=== PATIENT | male | born 1990 | race Caucasian/White ===

== ENCOUNTER 2018-03-01 19:30 | Emergency (ER) | payer MEDICAID, SELFPAY ==
[2018-03-01 19:32] VITALS: BP 132/73; PULSE 83; RESP 20; TEMP 36.8; O2SAT 94; BMI 31.9
--- NOTE | 2018-03-01 20:13 | ED.VISSUMM ---
- ER Visit Summary Date of Service: 03/01/18 Chief Complaint: Cough, congestion History of Present Illness: The patient is a 27 M who reports a 2-3 day history of generalized body aches and subjective fever with chills. He reports cough with yellow sputum. He is also complaining of runny nose and head congestion. He states he has not eaten much the past couple of days due to nausea. Today he had some diarrhea. He tried to go back to work tonight and states that as he was walking out of her residence room he became very lightheaded and broke out in a cold sweat. He states 3 fellow employees had to help him to a chair. Physical Examination: Vital signs are unremarkable. Patient sitting upright in bed no acute distress. Head and neck examination reveals TMs to be clear bilaterally. He has moist mucous membranes. Posterior pharyngeal examination is unremarkable. Neck is supple with no meningismus. Heart is regular rate and rhythm. Lung sounds are clear. Abdomen is soft nontender. Skin examination was no rash or lesions. Test Results: Chemistry studies reveal potassium 3.4, otherwise normal. Emergency Department Course and Treatment: Patient was given Afrin nasal spray along with p.o. Benadryl. He is given a liter IV fluids along with Toradol. I believe patient has viral syndrome. He will be sent home with Afrin nasal spray. He is encouraged use Benadryl or Sudafed to help with the congestion. Treatment Plan: [] Disposition: Discharge Impression: Viral syndrome This note was generated with [employer] dictation software. It may contain incorrect words, spelling, and punctuation that were not noted in review of the chart prior to signing ED Disposition - Plan for ED Patient: Chief Complaint: General Illness
[2018-03-01] MEDS: 0.9% Normal Saline 1,000 ML 1000 ML IV (20:25)
[2018-03-01] MEDS: DiphenhydrAMINE 25 MG Capsule 50 MG PO (20:25)
[2018-03-01] MEDS: Oxymetazoline 0.05% 1 SPRAY SPRAY.BTL 2 SPRAY NASAL (20:25)
[2018-03-01] MEDS: Ketorolac 30 MG/ML Syringe IV (20:25)
[2018-03-01 20:34] LABS: Anion Gap 4 (5-15); BUN 6 mg/dL (7-18); BUN/Creat Ratio 6.7 RATIO (10-20); Calcium,Total 8.6 mg/dL (8.5-10.1); Chloride 104 mmol/L (98-107); Creatinine, Serum 0.89 mg/dL (0.70-1.30); EST Glomerular Filtration Rate 110 mL/min (>60); Est Glom Filt Rate - Afr Amer 133 mL/min (>60); Estimated Creatinine Clearance 118.63 ml/min; Glucose 91 mg/dL (74-106); Potassium 3.4 mmol/L (3.5-5.1); Sodium Level 139 mmol/L (136-145)
--- NOTE | 2018-03-01 21:19 | ED.DEP ---
ED Disposition - Plan for ED Patient: Disposition: Home or Assisted Living Chief Complaint: General Illness Instructions: ED Viral Syndrome Ch Additional Instructions: Follow-up with your doctor. Increase fluids to maintain hydration.
[2018-03-01 21:32] VITALS: BP 128/86; PULSE 81; RESP 17; O2SAT 94
== END 2018-03-01 21:34 | disposition home or self-care (01) ==
PROVIDERS: Emergency Provider Emergency Medicine
DX: B34.9 Viral infection, unspecified (principal); R68.83 Chills (without fever); J34.89 Other specified disorders of nose and nasal sinuses; R05 Cough; M79.1 Myalgia; R09.81 Nasal congestion; R11.0 Nausea; R19.7 Diarrhea, unspecified; F41.9 Anxiety disorder, unspecified; F32.9 Major depressive disorder, single episode, unspecified; Z79.899 Other long term (current) drug therapy; Z72.0 Tobacco use
CPT/HCPCS: 80048; 96361; 96374; 99284; J7030